=== PATIENT | female | born 1985 | race Caucasian/White ===

== ENCOUNTER 2021-03-05 23:52 | Emergency (ER) | payer MEDICAID ==
[~2021-03-05] VITALS: Ht 162.6 cm; Wt 143.0 kg
[~2021-03-05 23:52] MED LIST: DICL25TA9 PO; LITH600C PO; MELA1TAB46 PO; QUET200T79 PO
[2021-03-06 00:01] VITALS: BP 161/99
--- NOTE | 2021-03-06 00:10 | PHYS DOC ---
Adult General Chief Complaint Chief Complaint: MECHANICAL FALL HPI HPI Patient is a 35-year-old female who presents with right-sided rib pain after slipping and falling and landing on her right side on a set of stairs while moving some furniture under her friend's house about an hour ago. Denies any head injuries, loss of consciousness, neck pain, shortness of breath, abdominal pain, nausea, vomiting. Denies any numbness/weakness/tingling. Denies any trouble sitting, standing or walking. States she is having some pain on her right sided ribs just lateral and below her right nipple, 6 out of 10, sharp in nature. States she did not take any medications. Review of Systems Review of Systems Review of systems otherwise unremarkable except noted in HPI Allergies Allergies Allergies Coded Allergies Type Severity Reaction Last Updated Verified Penicillins Allergy Intermediate 03/06/21 Yes Physical Exam Physical Exam Constitutional: Well developed, well nourished, no acute distress, non-toxic appearance. [] HENT: Normocephalic, atraumatic, bilateral external ears normal, oropharynx moist, no oral exudates, nose normal. [] Eyes: conjunctiva normal, no discharge. [] Neck: Normal range of motion, no tenderness, supple, no stridor. [] Cardiovascular:Heart rate regular rhythm, no murmur [] Lungs & Thorax: Bilateral breath sounds clear to auscultation. Has some pain in the right lateral wall with no obvious bruising, deformities or redness [] Abdomen: soft, no tenderness, no masses, no pulsatile masses. [] Skin: Warm, dry, no erythema, no rash, no bruising, contusions or lacerations. [] Back: No midline tenderness throughout spine or paraspinal muscle tenderness or spasm, no CVA tenderness. [] Extremities: No tenderness, no cyanosis, no clubbing, ROM intact, no edema. Neurovascular exam intact. [] Neurologic: Alert and oriented X 3, normal motor function, normal sensory function, no focal deficits noted. [] Psychologic: Affect normal, judgement normal, mood normal. [] EKG EKG [] Radiology/Procedures Radiology/Procedures [] Heart Score C/O Chest Pain: N/A Risk Factors: Risk Factors: DM, Current or recent (<one month) smoker, HTN, HLP, family history of CAD, obesity. Risk Scores: Risk Factors: DM, Current or recent (<one month) smoker, HTN, HLP, family history of CAD, obesity. Course & Med Decision Making Course & Med Decision Making Patient is a 35-year-old female who presents with right-sided rib pain after slipping and falling on the stairs while moving furniture an hour ago Vital signs notable for hypertension. Physical exam noted above. Patient given pain medicine and ice pack. Imaging with no acute osseous abnormalities. Discussed findings with patient. Discussed symptom control at home. Advised to follow-up with primary care physician as needed. Gave return precautions to the ED. Patient grateful, verbalized understanding and agreed with plan of discharge [] Dragon Disclaimer Dragon Disclaimer This electronic medical record was generated, in whole or in part, using a voice recognition dictation system. Departure Departure: Impression: Primary Impression: Fall Disposition: 01 HOME / SELF CARE / HOMELESS Condition: GOOD Referrals: GARY DAVIS Patient Instructions: Fall Prevention and Home Safety, RICE - Routine Care for Injuries Additional Instructions: Thank you for coming into the emergency department tonight and allowing us to take care of you. Please read the attached information carefully to go over things we discussed. Please begin a Tylenol, ibuprofen, Benadryl and ice pack regimen as tolerated as long as you are not allergic for pain. Please follow-up with your primary care physician to update on your ED visit and set up a follow-up as soon as you can. Please come back with new or concerning symptoms as we discussed. DARLIN ISRAEL MD Mar 06, 2021 00:10
[2021-03-06] MEDS ORDERED: oxyCODONE/APAP 5/325 1 TAB TABLET PO ONE (00:15)
--- NOTE | 2021-03-06 00:39 | RAD ---
Single view chest and right-sided rib study dated 03/06/2021. COMPARISON: None. Clinical data indication: Pain after fall. FINDINGS: Single upright view the chest shows normal heart and mediastinal contours. Lungs are clear. No consol idation or pleural effusion. No pneumothorax. Dedicated views of right-sided ribs show no evidence of displaced right rib fracture. No acute bony a bnormality. Clips in the right upper quadrant consistent with prior cholecystectomy. IMPRESSION: 1. No acute radiographic abnormality. No evidence of displaced right rib fracture. Electronically signed by: Dax Higgins MD (03/06/2021 12:36 AM) [facility]
== END 2021-03-06 00:52 | disposition home or self-care (01) ==
LOC: ER 23:52
DX: R07.81 Pleurodynia (principal); Z88.0 Allergy status to penicillin; W01.0XXA Fall on same level from slipping, tripping and stumbling without subsequent striking against object, initial encounter; Y93.89 Activity, other specified; Y92.89 Other specified places as the place of occurrence of the external cause; Y99.8 Other external cause status
CPT/HCPCS: 71101; 99284